=== PATIENT | male | born 1960 | race Two or more races ===

== ENCOUNTER 2016-11-23 19:26 | Emergency (ER) | payer MEDICARE ==
[~2016-11-23] VITALS: Ht 180.3 cm; Wt 72.6 kg
--- NOTE | 2016-11-23 19:26 | NUR ---
PT BIBA#102 PT STATES HE WANTS TO KILLHIMSELF BY JUMPING OFF A PARKING GARAGE AND DENIES HI, PT STATES HE ALSO HAS PNEUMONIA.
--- NOTE | 2016-11-23 19:57 | NUR ---
ROLL CAPPER AT BEDSIDE FOR EVAL
[2016-11-23 20:10] LABS: BASOPHILS # (AUTO) 0.4 /CMM (0.0-0.2); BASOPHILS % (AUTO) 2.8 % (0.0-2.0); HEMATOCRIT 42 % (39-51); HEMOGLOBIN 13.9 g/dL (13.5-17.5); LYMPHOCYTES # (AUTO) 1.1 /CMM (0.8-4.8); MEAN CORPUSCULAR HEMOGLOBIN 27 PG (26.0-33.0); MEAN CORPUSCULAR HGB CONC 33 g/dl (31.0-36.0); MEAN CORPUSCULAR VOLUME 82 fL (80-96); MONOCYTES # (AUTO) 0.7 /CMM (0.1-1.30); MONOCYTES % (AUTO) 5.5 % (2.0-12.0); NEUTROPHILS # (AUTO) 10.6 /CMM (1.8-8.9); NEUTROPHILS % (AUTO) 82.7 % (43.0-81.0); PLATELET COUNT (AUTO) 409 /CMM (150-450); RDW COEFFICIENT OF VARIATION 13.3 (11.5-15.0); RED BLOOD CELL COUNT(AUTO) 5.15 MIL/uL (4.5-6.0); WHITE BLOOD COUNT (AUTO) 12.8 K/uL (4.3-11.0)
[2016-11-23 20:12] LABS: CARBON DIOXIDE 25 mmol/L (21-32); CHLORIDE 104 mmol/L (98-107); GLUCOSE 130 mg/dL (74-106); POTASSIUM 4.2 mmol/L (3.5-5.1); SODIUM SERUM 140 mmol/L (136-145); UREA NITROGEN, BLOOD 24 mg/dL (7-18)
[2016-11-23 20:18] LABS: ACETAMINOPHEN < 2 ug/ml (10-30); ALANINE AMINOTRANSFERASE 26 U/L (12-78); ALCOHOL, BLOOD < 3 mg/dL (0-0); ALKALINE PHOSPHATASE 86 U/L (46-116); ASPARTATE AMINOTRANSFERASE 19 U/L (15-37); BILIRUBIN,DIRECT 0.1 mg/dL (0.0-0.2); BILIRUBIN,TOTAL 0.3 mg/dL (0.2-1.0); SALICYLATE 1.4 mg/dL (2.8-20.0); TOTAL PROTEIN, SERUM 7.8 g/dL (6.4-8.2)
--- NOTE | 2016-11-23 20:56 | NUR ---
URINE SAMPLE COLLECTED SENT TO LAB
[2016-11-23 22:34] LABS: APPEARANCE,URINE CLEAR (CLEAR); BILIRUBIN,URINE NEGATIVE (NEGATIVE); BLOOD, URINE NEGATIVE Ery/uL (NEGATIVE); COLOR,URINE YELLOW (YELLOW); KETONES,URINE TRACE (NEGATIVE); LEUKOCYTE ESTERASE ,URINE NEGATIVE (NEGATIVE); NITRITE, URINE NEGATIVE (NEGATIVE); PROTEIN,URINE NEGATIVE (NEGATIVE); UGLUCOSE NEGATIVE (NEGATIVE); UROBILINOGEN,URINE 0.2 EU/dL (0.2)
[2016-11-23 22:42] LABS: BACTERIA,URINE Few /HPF (None Seen); RBC,URINE 0-2 /HPF (0-2); SQUAMOUS EPITHELIAL CELL,UR Rare /HPF (None Seen); WBC,URINE 0-2 /HPF (0-3)
--- NOTE | 2016-11-23 23:31 | NUR ---
WAITING FOR ART, CRISIS NURSE EVAL.
--- NOTE | 2016-11-23 23:38 | NUR ---
ART AT BEDSIDE FOR EVAL
[2016-11-24 00:40] VITALS: BP 148/88
--- NOTE | 2016-11-24 00:40 | NUR ---
Patient discharged to home in stable condition. Written and verbal after care instructions given. Patient verbalizes understanding of instruction.Patient given written and verbal discharge instructions. Patient verbalizes understanding of instructions. Patient is ambulatory with steady gait. Refuses offer of jail placement. Patient given list of available shelters in surrounding area.
== END 2016-11-24 00:41 | disposition home or self-care (01) ==
LOC: ER 19:27
DX: F20.9 Schizophrenia, unspecified (principal); R05 Cough; F32.9 Major depressive disorder, single episode, unspecified
CPT/HCPCS: 36415; 71010-TC; 80048-TC; 80076-TC; 80305; 81000-TC; 85025-TC; A4606; G0480; J7030; Z7610

== ENCOUNTER 2016-12-08 20:11 | Emergency (ER) | payer MEDICARE, MEDICAID ==
[~2016-12-08] VITALS: Ht 177.8 cm; Wt 68.0 kg
--- NOTE | 2016-12-08 20:27 | NUR ---
BB SELF; MEDICATION REFILL XANAX 2MG BID, PT AOX3 RR EVEN AND UNLABORED. NO SOB NOTED. NAD NOTED. NO NVD AT THIS TIME. DR. MCKEON AT BEDSIDE FOR EVAL.
[2016-12-08] MEDS ORDERED: OLANZAPINE 10 MG VIAL IM ONE (20:30)
[2016-12-08] MEDS ORDERED: OLANZAPINE 5 MG TABLET ONE (20:30)
[2016-12-08] MEDS ORDERED: ALPRAZOLAM 0.5 MG TABLET PO ONE (20:30)
[2016-12-08] MEDS ORDERED: ALPRAZOLAM 0.5 MG TABLET ONE (20:30)
--- NOTE | 2016-12-08 20:31 | NUR ---
VERBAL ORDERS PER DR. MCKEON TO GIVE PT ZYPREXA 10MG PO INSTEAD OF ZYPREXA 10MG IM. PT MEDICATED.
[2016-12-08 21:24] LABS: BASOPHILS % (AUTO) 0.5 % (0.0-2.0); EOSINOPHILS # (AUTO) 0.4 /CMM (0.0-0.7); EOSINOPHILS % (AUTO) 6.4 % (0.0-6.0); HEMATOCRIT 36 % (39-51); HEMOGLOBIN 11.9 g/dL (13.5-17.5); LYMPHOCYTES % (AUTO) 30.7 % (20.0-44.0); MEAN CORPUSCULAR HEMOGLOBIN 28 PG (26.0-33.0); MEAN CORPUSCULAR HGB CONC 33 g/dl (31.0-36.0); MEAN CORPUSCULAR VOLUME 83 fL (80-96); MONOCYTES # (AUTO) 0.6 /CMM (0.1-1.30); MONOCYTES % (AUTO) 9.7 % (2.0-12.0); NEUTROPHILS # (AUTO) 3.6 /CMM (1.8-8.9); NEUTROPHILS % (AUTO) 52.7 % (43.0-81.0); PLATELET COUNT (AUTO) 330 /CMM (150-450); RDW COEFFICIENT OF VARIATION 13.4 (11.5-15.0); RED BLOOD CELL COUNT(AUTO) 4.33 MIL/uL (4.5-6.0); WHITE BLOOD COUNT (AUTO) 6.6 K/uL (4.3-11.0)
[2016-12-08] MEDS ORDERED: OLANZAPINE 5 MG TABLET PO ONE (21:30)
[2016-12-08 21:33] LABS: CALCIUM, SERUM 8.4 mg/dL (8.5-10.1); CARBON DIOXIDE 27 mmol/L (21-32); CHLORIDE 108 mmol/L (98-107); CREATININE 0.8 mg/dL (0.6-1.3); GLUCOSE 83 mg/dL (74-106); POTASSIUM 4.1 mmol/L (3.5-5.1); SODIUM SERUM 137 mmol/L (136-145); UREA NITROGEN, BLOOD 11 mg/dL (7-18)
[2016-12-08 21:35] LABS: ALCOHOL, BLOOD < 3 mg/dL (0-0)
[2016-12-08 21:41] LABS: TROPONIN I < 0.017 ng/mL (0.00-0.056)
--- NOTE | 2016-12-08 22:09 | NUR ---
ART CALLED FOR EVAL.
--- NOTE | 2016-12-08 22:09 | NUR ---
URINE COLLECTED. CALLED LAB FOR FREEZING ROOM WORKER
--- NOTE | 2016-12-08 23:10 | NUR ---
ART AT BEDSIDE FOR EVAL.
--- NOTE | 2016-12-09 00:17 | NUR ---
SPOKE TO HUMBERTO FROM [facility] [phone] FOR GRADY. ADMITTING MD DR. LARIOS
--- NOTE | 2016-12-09 00:34 | NUR ---
CALLED LUAN LOZADA 20 MINUTES.
--- NOTE | 2016-12-09 01:00 | NUR ---
REPORT GIVEN TO LUAN EMT FOR GRADY. PT AWARE OF TRANSFER TO [facility]. VSS PT WITH ALL PERSONAL BELONGINGS. PER SHAWANDA TOOK OVER CARE. PT TO BE TRANSFERRED VIA GURNEY.
[2016-12-09 01:06] VITALS: BP 132/69
== END 2016-12-09 01:06 | disposition home or self-care (01) ==
LOC: ER 20:13
DX: R45.851 Suicidal ideations (principal); F32.9 Major depressive disorder, single episode, unspecified; F20.9 Schizophrenia, unspecified
CPT/HCPCS: 36415; 80048; 80305; 84484; 85025; 99284; A4606; G0480; Z7610

== ENCOUNTER 2017-03-10 00:42 | Inpatient (IN) | payer MEDICARE, MEDICAID ==
[~2017-03-10] VITALS: Ht 179.1 cm; Wt 69.9 kg
--- NOTE | 2017-03-10 03:30 | NUR ---
GPS RN NOTES: ADMITTED A 56-YEAR OLD MALE FROM [facility], ACCOMPANIED BY 2 EMT'S VIA GURNEY TRANSPORTED BY AMBULANCE, PATIENT ADMITTED ON 5150 HOLD FOR DTS. PER HOLD PATIENT REPORTS HE IS HEARING VOICES AND WANTS TO JUMP OFF THE GRAETTINGER PIER. PATIENT REPORTS THAT HE IS OUT OF MEDICATIONS AND DOES NOT FEEL SAFE. PT REPORTS INCREASED SI OVER THE PAST 2 DAYS. UPON FACE TO FACE EVALUATION PATIENT IS ALERT, ORIENTED X 3, ANXIOUS WITH CONFUSION, HYPERVERBAL, MED SEEKER, PATIENT DID NOT VERBALIZE SI/HI, DENIES VISUAL/AUDITORY HALLUCINATIONS AT THIS TIME. PATIENT RIGHTS WAS EXPLAINED TO HIM AND PATIENT RIGHT BOOKLET WAS GIVEN TO HIM. PATIENT WAS ORIENTED IN THE UNIT AND UNIT POLICIES. CONTRABAND, SKIN ASSESSMENT DONE. NO FAMILY TO NOTIFY OF HIS ADMISSION PER PATIENT. WILL CONTINUE TO MONITOR [id number] FOR SAFETY AND BEHAVIOR. DR. BYRNE MADE AWARE OF ADMISSION. WILL ENDORSE TO THE INCOMING NURSE FOR CONTINUITY OF CARE. Addendum: 03/10/17 at 0530 by TRENT STEPHENSON RN DR. GOMEZ NOTIFIED OF THE ADMISSION ORDERS OBTAINED.
[2017-03-10] MEDS ORDERED: MAG HYDROX/AL HYDROX/SIMETH 30 ML UDC PO PRN (04:00)
[2017-03-10] MEDS ORDERED: MAGNESIUM HYDROXIDE 30 ML UDC PO PRN (04:00)
[2017-03-10] MEDS ORDERED: ALPR2TAB2 PO (04:04)
[2017-03-10] MEDS ORDERED: TRIH2TAB4 PO (04:04)
[2017-03-10] MEDS ORDERED: QUET100T PO (04:04)
[2017-03-10 05:08] VITALS: BP 139/90
--- NOTE | 2017-03-10 09:00 | NUR ---
GPS/RN PT REFUSED FULL BODY ASSESSMENT. STATES : " I ONLY HAVE SHOULDER ABRASION"
--- NOTE | 2017-03-10 10:14 | NUR ---
WOUND CARE CONSULT: PT AMBULATORY AND CONTINENT WITH RT SHOULDER ABRASION, PRESENT ON ADMISSION. RECOMMENDATIONS MADE FOR WOUND CARE. DISCUSSED WITH NURSING STAFF. WILL SEE PRN. PEREZ IN AGREEMENT WITH PLAN OF CARE. Addendum: 03/10/17 at 1015 by LASHELL ORTIZ WNDNU Amended: Links added.
[2017-03-10] MEDS ORDERED: clonazePAM 0.5 MG TABLET PO PRN (10:30)
[2017-03-10] MEDS: QUETIAPINE FUMARATE 100 MG TABLET PO SCH ×3 (11:00→16:25)
--- NOTE | 2017-03-10 11:34 | NUR ---
GPS/RN PT REFUSED TO TAKE SEROQUEL, STATES : " I NEED ARTANE..."
--- NOTE | 2017-03-10 12:30 | NUR ---
GPS/RN PT REFUSED ATIVAN OFFERED. STATES: " I NEED 2MG TABLET..'
[2017-03-10] MEDS: BACITRACIN/POLYMYXIN B 15 GM TUBE TP SCH (13:09)
--- NOTE | 2017-03-10 13:55 | NUR ---
GPS/RN CALLED FOR THE ORDERS, PT REQUESTED ARTANE PO TO BE GIVEN WITH SEROQUEL. ORDERS RECEIVED AND CARRIED OUT.
--- NOTE | 2017-03-10 14:01 | NUR ---
Initial Discharge Note: Patient is homeless. Patient states that he "might consider" a transitional living. Patient states that he absolutely does not want a board and care, assisted living facility or a SNF. Patient states that, after discharge, he wants to go to [place]. Patient states that he does not have anyone for SW to call or contact. SW to follow up with treatment team and to facilitate a safe discharge for patient.
[2017-03-10 16:00] VITALS: BP 150/96
[2017-03-10] MEDS: TRIHEXYPHENIDYL HCL 5 MG TABLET PO SCH (16:25)
[2017-03-10] MEDS: LORAZEPAM 0.5 MG TABLET PO PRN ×2 (16:30→19:52)
[2017-03-10] MEDS: ACETAMINOPHEN 325 MG TABLET PO PRN ×2 (17:01→20:03)
[2017-03-10] MEDS: DIVALPROEX SODIUM 250 MG TABLET.DR PO SCH ×2 (21:00→21:52)
[2017-03-10] MEDS: TEMAZEPAM 7.5 MG CAPSULE PO PRN (21:53)
[2017-03-11 07:57] LABS: ALBUMIN 3.4 g/dL (3.4-5.0); BILIRUBIN,TOTAL 0.3 mg/dL (0.2-1.0); CALCIUM, SERUM 8.8 mg/dL (8.5-10.1); CREATININE 0.7 mg/dL (0.6-1.3); POTASSIUM 4.2 mmol/L (3.5-5.1)
[2017-03-11 08:00] VITALS: BP 128/93
[2017-03-11 08:32] LABS: CHOLESTEROL 139 mg/dL (<200); HDL CHOLESTEROL 56 mg/dL (40-60); LDL 70 mg/dL (0-99); TRIGLYCERIDES 82 mg/dL (30-150)
[2017-03-11] MEDS: QUETIAPINE FUMARATE 100 MG TABLET PO SCH ×3 (08:58→16:28)
[2017-03-11] MEDS: TRIHEXYPHENIDYL HCL 5 MG TABLET PO SCH ×3 (08:58→16:28)
[2017-03-11] MEDS: DIVALPROEX SODIUM 250 MG TABLET.DR PO SCH ×2 (08:59→21:30)
[2017-03-11] MEDS: BACITRACIN/POLYMYXIN B 15 GM TUBE TP SCH (10:42)
[2017-03-11] MEDS: LORAZEPAM 0.5 MG TABLET PO PRN ×2 (12:00→20:39)
--- NOTE | 2017-03-11 12:00 | NUR ---
GPS/RN ATIVAN 0.5 MG SCANNED AND GIVEN TO THE PATIENT PRIOR TO DR GOMEZ NEW ORDERS. Spime DID NOT SAVED MEDICATION "ADMINISTERED " BUT FORCED THE TRACTOR DRIVER TEAMSTER OF THE NOTE TO " DISCARD AND REFRESH" INSTEAD.
[2017-03-11 16:00] VITALS: BP 138/88
[2017-03-11] MEDS: TEMAZEPAM 7.5 MG CAPSULE PO PRN (21:31)
[2017-03-12 08:00] VITALS: BP 145/76
[2017-03-12] MEDS: DIVALPROEX SODIUM 250 MG TABLET.DR PO SCH (09:02)
[2017-03-12] MEDS: QUETIAPINE FUMARATE 100 MG TABLET PO SCH ×4 (09:02→21:27)
[2017-03-12] MEDS: TRIHEXYPHENIDYL HCL 5 MG TABLET PO SCH ×3 (09:02→17:41)
[2017-03-12] MEDS: BACITRACIN/POLYMYXIN B 15 GM TUBE TP SCH (09:03)
[2017-03-12] MEDS: LORAZEPAM 0.5 MG TABLET PO PRN ×3 (09:06→21:39)
[2017-03-12] MEDS ORDERED: DIVALPROEX SODIUM 250 MG TABLET.DR PO SCH (13:00)
[2017-03-12] MEDS: DIVALPROEX SODIUM 125 MG TABLET.DR PO SCH (13:24)
[2017-03-12 16:00] VITALS: BP 123/91
[2017-03-12 19:58] VITALS: BP 131/71
[2017-03-12] MEDS: DIVALPROEX SODIUM 125 MG CAP.SPRINK PO SCH (21:00)
[2017-03-12] MEDS: ACETAMINOPHEN 325 MG TABLET PO PRN (21:27)
--- NOTE | 2017-03-12 23:21 | NUR ---
GPS RN: PATIENT REQUESTED FOR BREATHING TREATMENT, PATIENT HAS HISTORY OF ASTHMA. PAGED DR. BYRNE, AND SHE GAVE ORDERS FOR ALBUTEROL NEB Q4HRS PRN FOR SOB. ORDERS NOTED AND CARRIED OUT. WILL CONTINUE TO MONITOR PATIENT.
[2017-03-12] MEDS ORDERED: ALBUTEROL FS 2.5 MG/0.5 ML VIAL.NEB ONE (23:32)
[2017-03-12] MEDS: ALBUTEROL FS 2.5 MG/0.5 ML VIAL.NEB NEB PRN (23:38)
[2017-03-13 08:00] VITALS: BP 129/75
[2017-03-13] MEDS: TRIHEXYPHENIDYL HCL 5 MG TABLET PO SCH ×3 (08:18→17:14)
[2017-03-13] MEDS: QUETIAPINE FUMARATE 100 MG TABLET PO SCH ×4 (08:19→21:00)
[2017-03-13] MEDS: DIVALPROEX SODIUM 125 MG CAP.SPRINK PO SCH ×2 (08:21→21:00)
[2017-03-13] MEDS: BACITRACIN/POLYMYXIN B 15 GM TUBE TP SCH (08:21)
[2017-03-13] MEDS: LORAZEPAM 0.5 MG TABLET PO PRN ×2 (08:34→18:14)
--- NOTE | 2017-03-13 08:34 | NUR ---
[id number]: GAVE ATIVAN 1 MG PO DUE TO SEVERE ANXIETY UPON PT REQUEST AND WILL CONTINUE TO MONITOR FOR EFFECTIVENESS OF MEDICATION
--- NOTE | 2017-03-13 11:38 | NUR ---
SUPRIYA conducted a substance abuse intervention with patient. Completed intervention is in patient's chart. Addendum: 03/14/17 at 1004 by ISABEL EPPS INCORRECT PATIENT. PLEASE DISREGARD!
[2017-03-13] MEDS: DIVALPROEX SODIUM 125 MG TABLET.DR PO SCH ×2 (12:10→12:17)
[2017-03-13 16:14] VITALS: BP 135/89
--- NOTE | 2017-03-13 18:14 | NUR ---
[id number]: GAVE ATIVAN 1 MG PO DUE TO SEVERE ANXIETY UPON PT REQUEST AND WILL CONTINUE TO MONITOR FOR EFFECTIVENESS OF MEDICATION
[2017-03-13 19:53] VITALS: BP 127/75
[2017-03-14] MEDS: LORAZEPAM 0.5 MG TABLET PO PRN ×3 (05:27→19:41)
[2017-03-14 08:00] VITALS: BP 106/67
[2017-03-14] MEDS: QUETIAPINE FUMARATE 100 MG TABLET PO SCH ×3 (08:17→16:45)
[2017-03-14] MEDS: DIVALPROEX SODIUM 125 MG CAP.SPRINK PO SCH (08:18)
[2017-03-14] MEDS: BACITRACIN/POLYMYXIN B 15 GM TUBE TP SCH (09:00)
[2017-03-14] MEDS: TRIHEXYPHENIDYL HCL 5 MG TABLET PO SCH ×3 (09:00→16:45)
--- NOTE | 2017-03-14 09:22 | NUR ---
RN-CO: MADE A FOLLOW OF MANSOOR TO PHARMACIST 2X .STILL NOT AVAILABLE.
--- NOTE | 2017-03-14 10:04 | NUR ---
RN-CO: CALLED PHARMACIST AGAIN TO DELIVER ARTANE.
--- NOTE | 2017-03-14 11:53 | NUR ---
Discharge Planning: SW spoke with patient regarding discharge plan. SW explained different option for patient. Patient agreed to temporary SNF placement. SW to secure placement for patient.
--- NOTE | 2017-03-14 11:54 | NUR ---
Discharge Planning: SUPRIYA faxed an inquiry to [facility], [address] [place] [address] / fax number [phone]
[2017-03-14] MEDS: DIVALPROEX SODIUM 125 MG TABLET.DR PO SCH (12:18)
--- NOTE | 2017-03-14 13:50 | NUR ---
RN-CO: ATIVAN 1 MG GIVEN FOR ANXIETY.
[2017-03-14 16:00] VITALS: BP 126/98
--- NOTE | 2017-03-14 16:49 | NUR ---
Discharge Planning: SUPRIYA heard back from , admissions from [facility], [address] [place] [address] / fax number [phone], who stated that he scanned patient's insurance and found that there are no SNF days left through medicare. Kelvin, mask designer from multiple facilities, also contacted SUPRIYA and informed her that he had been attempting to find placement for patient in other facilities, but patient is a "flight risk" and does not have SNF days left through medicare. SUPRIYA informed patient. Patient stated that he was planned on only staying at the facility for a "day or two." Patient stated that he just wants to "go to [place]."
[2017-03-14 20:10] VITALS: BP 138/84
[2017-03-14] MEDS: QUETIAPINE FUMARATE 25 MG TABLET PO SCH (21:56)
[2017-03-14] MEDS ORDERED: TRIHEXYPHENIDYL HCL 5 MG TABLET PO ONE (22:00)
[2017-03-15 08:00] VITALS: BP 120/79
[2017-03-15] MEDS: TRIHEXYPHENIDYL HCL 5 MG TABLET PO SCH ×3 (08:20→16:52)
[2017-03-15] MEDS: QUETIAPINE FUMARATE 25 MG TABLET PO SCH ×4 (08:20→21:01)
[2017-03-15] MEDS: BACITRACIN/POLYMYXIN B 15 GM TUBE TP SCH (08:21)
[2017-03-15] MEDS: LORAZEPAM 0.5 MG TABLET PO PRN ×3 (09:54→21:51)
--- NOTE | 2017-03-15 12:29 | NUR ---
Discharge Planning: SW spoke with patient regarding his discharge plan. Patient stated that he would like to - and is in agreement with - discharging from the hospital tomorrow morning. Patient stated that he does not want any alternative placement options. Patient stated that he would like a couple of bus tokens, which SW will secure for patient. SW will provide patient with various resources upon discharge.
[2017-03-15 16:43] VITALS: BP 125/88
[2017-03-15 20:36] VITALS: BP 146/80
[2017-03-16] MEDS: ALBUTEROL FS 2.5 MG/0.5 ML VIAL.NEB NEB PRN (00:59)
[2017-03-16] MEDS: LORAZEPAM 0.5 MG TABLET PO PRN ×2 (06:24→09:51)
[2017-03-16 08:00] VITALS: BP 117/74
[2017-03-16] MEDS: QUETIAPINE FUMARATE 25 MG TABLET PO SCH (09:25)
[2017-03-16] MEDS: TRIHEXYPHENIDYL HCL 5 MG TABLET PO SCH (09:25)
[2017-03-16] MEDS: BACITRACIN/POLYMYXIN B 15 GM TUBE TP SCH (09:26)
--- NOTE | 2017-03-16 09:33 | NUR ---
Discharge Planning: SW spoke with patient the morning of discharge. Patient once again refused mcc, SNF, board and care or any alternative options. Patient stated that he had a plan for discharge, but did not wish to disclose the plan with SW. Patient is vague about his discharge plan and does not wish to discuss with SW. SW will provide patient with mental health, medical and community resources and referrals. SW will encourage patient to utilize these resources. Patient signed the homeless waiver form, stating that he is refusing placement and mcc resources. The signed waiver is in patient's chart.
--- NOTE | 2017-03-16 09:38 | NUR ---
SW made three attempts for the substance abuse intervention. Patient was unwilling to sign and participate in answering questions. SW attempted to engage patient in discussion of community resources and referrals to address his substance use, but patient was unwilling to discuss. SW provided patient with a list of resources and left them at his bedside.
--- NOTE | 2017-03-16 09:51 | NUR ---
rn notes administered ativan 1 mg po prn for anxiety, paranoia, v/s taken bp -130/82, p-99, continued monitoring.
--- NOTE | 2017-03-16 10:28 | NUR ---
Discharge Note: Patient will be discharged today at 11:30am. Patient remains vague about his discharge plans. Patient is homeless and is refusing any alternative placement. SW attempted to discuss various options, but patient was unwilling to discuss. SW secured two bus tokens for patient, at his request. Upon discharge, patient is calm. Patient denies suicidal and homicidal ideation. Patient states that he is glad to be leaving the hospital. SW provided patient with an extensive list of resources. A copy of the resources given to patient is in the patients chart. The resources list includes medical, mental health and substance abuse resources. Patient was also provided with a list of winter shelters and picker packer locations. Patient did not wish for SW to make any follow-up appointments for him. Patient has no family to notify. This is a list of resources provided for patient [the complete list, along with winter shelters is in patients chart. The patient also has a copy of all resources]: Medical Resources [facility] [address] [facility] [address] [facility] [address] [place] [address] Mental Health Referrals [facility] [address] [place] [address] [facility] [address] [facility] [address], [place] [facility] [address] [facility] [address], [facility] [address] [facility] Substance Abuse Resources [place] [address] [place] [address] takes walk-ins before 5pm [facility] [address] [place] [address] [facility] [address] [place] [address] Walk-in intake screening: after 9am on weekdays [facility] [address] [place] [address]
--- NOTE | 2017-03-16 12:45 | NUR ---
DISCHARGE NOTES PATIENT DISCHARGE AT THIS TIME GOING ASSISTED. PATIENT A/O X3, MED COMPLIANT , V/S STABLE, NO C/O PAIN. MEDICALLY STABLE. PATIENT DENIED SI/HI/AVH AT THIS TIME OF DISCHARGE. MED RECONCILIATION AND DISCHARGE ORDER REVIEWED AND EXPLAINED TO PATIENT. PATIENT VERBALIZED UNDERSTANDING. BELONGING RETURNED BACK TO THE PATIENT, PATIENT WILL FOLLOW PRIMARY PAYROLL HUMAN RESOURCES ASSISTANT, AND PSYCHIATRIST. PICTURE TAKEN, PATIENT SIGN PAPERWORK. ESCORTED PATIENT TO THE LOBBY FOR SAFETY.
== END 2017-03-16 12:45 | disposition home or self-care (01) | DRG 885 ==
LOC: GPS 03:17
PROVIDERS: ADMIT Psychiatry & Neurology Psychosomatic Medicine; ATTEND Psychiatry & Neurology Psychosomatic Medicine
DX: F20.9 Schizophrenia, unspecified (principal); F29 Unspecified psychosis not due to a substance or known physiological condition; R45.851 Suicidal ideations; F19.90 Other psychoactive substance use, unspecified, uncomplicated; F41.9 Anxiety disorder, unspecified; Z79.899 Other long term (current) drug therapy
CPT/HCPCS: 36415; 80053-TC; 80061-TC

== ENCOUNTER 2017-05-09 04:36 | Emergency (ER) | payer MEDICARE, MEDICAID ==
[~2017-05-09] VITALS: Ht 175.3 cm; Wt 72.6 kg
[~2017-05-09 04:36] MED LIST: ALPR2TAB2 PO; QUET100T PO; TRIH2TAB4 PO
[2017-05-09 05:07] VITALS: BP 139/86
[2017-05-09] MEDS ORDERED: QUETIAPINE FUMARATE 100 MG TABLET PO STA (05:43)
[2017-05-09] MEDS ORDERED: ALPRAZOLAM 0.5 MG TABLET ONE (05:48)
[2017-05-09] MEDS ORDERED: QUETIAPINE FUMARATE 25 MG TABLET ONE (05:49)
[2017-05-09] MEDS ORDERED: ALPRAZOLAM 0.5 MG TABLET PO ONE (06:00)
== END 2017-05-09 06:11 | disposition home or self-care (01) ==
LOC: ER 04:36
DX: Z76.0 Encounter for issue of repeat prescription (principal); F41.9 Anxiety disorder, unspecified; F31.9 Bipolar disorder, unspecified
CPT/HCPCS: 99284; A4606; Z7610

== ENCOUNTER 2019-12-18 23:39 | Emergency (ER) | payer MEDICARE, MEDICAID ==
[~2019-12-18] VITALS: Ht 179.1 cm; Wt 74.8 kg
[2019-12-18 23:40] VITALS: BP 155/92
[2019-12-19] MEDS ORDERED: ALPRAZOLAM 0.5 MG TABLET ONE (00:23)
[2019-12-19] MEDS ORDERED: HYDROCODONE/APAP 5/325MG TABLET ONE (00:23)
[2019-12-19] MEDS ORDERED: HYDROCODONE/APAP 5/325MG TABLET PO ONE (00:30)
[2019-12-19] MEDS ORDERED: ALPRAZOLAM 0.5 MG TABLET PO ONE (00:30)
--- NOTE | 2019-12-19 00:32 | NUR ---
I SPOKE TO THE PT REGARDING MEDICATING HIM. PT AGREED TO BE MEDICATED. PT THEN ASKED IF THERE WAS A RX. I TOLD THE PT HE WOULD BE DISCHARGED WITH NO RX. PT STATED "FUCK YOU, THIS IS BOOKER." PT THEN STATED "I WILL REPORT YOU AND I WILL CALL 911 ONCE I AM OUTSIDE." PT THEN LEFT THE E.D. WITHOUT SIGNING PAPER WORK
== END 2019-12-19 00:36 | disposition home or self-care (01) ==
LOC: ER 23:39
DX: G89.29 Other chronic pain (principal); Z76.0 Encounter for issue of repeat prescription; F41.9 Anxiety disorder, unspecified; F31.9 Bipolar disorder, unspecified; Z79.899 Other long term (current) drug therapy

== ENCOUNTER 2019-12-19 01:05 | Emergency (ER) | payer MEDICAID, MEDICARE ==
--- NOTE | 2019-12-19 01:06 | NUR ---
UPON ARRIVAL OF EMS PT STARTED SPITTING ON THE FLOOR, CURSING. PT STATES "WHO THE FUCK GIVES YOU 0.5MG OF XANAX." GOT OUT OF [facility] AND WALKED OUT OF ER. PT WAS SEEN HERE EARLIER.
== END 2019-12-19 01:19 | disposition left against medical advice (07) ==
LOC: ER 01:05
DX: F41.9 Anxiety disorder, unspecified (principal); G89.29 Other chronic pain; F31.9 Bipolar disorder, unspecified; Z79.899 Other long term (current) drug therapy; Z76.0 Encounter for issue of repeat prescription

== ENCOUNTER 2020-03-05 01:36 | Emergency (ER) | payer MEDICAID, MEDICARE ==
[~2020-03-05] VITALS: Ht 180.3 cm; Wt 77.1 kg
--- NOTE | 2020-03-05 02:31 | NUR ---
PT AAOX4. AMBULATORY WITH STEADY GAIT. BIBSELF C/O "OUT OF PSYCH MEDS" MD AT BEDSIDE FOR EVAL. AWAITING ORDERS.
[2020-03-05] MEDS ORDERED: ONDANSETRON 4 MG TAB.RAPDIS ONE (02:42)
[2020-03-05] MEDS ORDERED: BENZTROPINE MESYLATE (1 MG) 1 MG TABLET ONE (02:44)
[2020-03-05] MEDS ORDERED: QUETIAPINE FUMARATE 25 MG TABLET ONE (02:45)
[2020-03-05] MEDS ORDERED: DIPHENOXYLATE HCL/ATROP SULF 1 UDTAB TABLET ONE (02:45)
[2020-03-05] MEDS ORDERED: LORAZEPAM 1 MG TABLET ONE (02:45)
[2020-03-05] MEDS: QUETIAPINE FUMARATE 100 MG TABLET PO SCH (03:04)
[2020-03-05] MEDS: ONDANSETRON 4 MG TAB.RAPDIS SL ONE (03:04)
[2020-03-05] MEDS: BENZTROPINE MESYLATE (1 MG) 1 MG TABLET PO ONE (03:04)
[2020-03-05] MEDS: LORAZEPAM 1 MG TABLET PO ONE (03:04)
[2020-03-05] MEDS: DIPHENOXYLATE HCL/ATROP SULF 1 UDTAB TABLET PO ONE (03:04)
[2020-03-05 03:07] VITALS: BP 118/86
== END 2020-03-05 03:07 | disposition home or self-care (01) ==
LOC: ER 01:36
DX: R19.7 Diarrhea, unspecified (principal); Z76.0 Encounter for issue of repeat prescription; F41.9 Anxiety disorder, unspecified; J45.909 Unspecified asthma, uncomplicated; F31.9 Bipolar disorder, unspecified; Z59.0 Homelessness; Z79.899 Other long term (current) drug therapy
CPT/HCPCS: 99284; Q0162

== ENCOUNTER 2020-08-08 18:10 | Emergency (ER) | payer MEDICAID, MEDICARE ==
[~2020-08-08] VITALS: Ht 180.3 cm; Wt 65.8 kg
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
--- NOTE | 2020-08-08 18:37 | NUR ---
DR RAGLAND AT BEDSIDE FOR EVAL.
[2020-08-08] MEDS ORDERED: ACETAMINOPHEN ES 500 MG TABLET ONE (18:58)
[2020-08-08] MEDS ORDERED: ACETAMINOPHEN ES 500 MG TABLET PO ONE (19:00)
[2020-08-08 19:07] LABS: BASOPHILS # (AUTO) 0.1 /CMM (0.0-0.2); BASOPHILS % (AUTO) 0.6 % (0.0-2.0); EOSINOPHILS % (AUTO) 1.7 % (0.0-6.0); HEMATOCRIT 35 % (39-51); HEMOGLOBIN 11.3 g/dL (13.5-17.5); LYMPHOCYTES # (AUTO) 1.3 /CMM (0.8-4.8); LYMPHOCYTES % (AUTO) 14.3 % (20.0-44.0); MEAN CORPUSCULAR HGB CONC 32 g/dl (31.0-36.0); MEAN CORPUSCULAR VOLUME 85 fL (80-96); MONOCYTES # (AUTO) 1.1 /CMM (0.1-1.30); MONOCYTES % (AUTO) 11.4 % (2.0-12.0); NEUTROPHILS # (AUTO) 6.7 /CMM (1.8-8.9); PLATELET COUNT (AUTO) 306 /CMM (150-450); RED BLOOD CELL COUNT(AUTO) 4.16 MIL/uL (4.5-6.0); WHITE BLOOD COUNT (AUTO) 9.3 K/uL (4.3-11.0)
--- NOTE | 2020-08-08 19:15 | NUR ---
COVID SWAB DONE AND SENT TO THE LAB
[2020-08-08 19:48] LABS: CALCIUM, SERUM 8.2 mg/dL (8.5-10.1); CARBON DIOXIDE 24 mmol/L (21-32); CHLORIDE 105 mmol/L (98-107); GLUCOSE 93 mg/dL (74-106); POTASSIUM 3.8 mmol/L (3.5-5.1); SODIUM SERUM 139 mmol/L (136-145); UREA NITROGEN, BLOOD 30 mg/dL (7-18)
[2020-08-08 19:56] LABS: ALANINE AMINOTRANSFERASE 27 U/L (12-78); ALCOHOL, BLOOD < 3 mg/dL (0-0); ALKALINE PHOSPHATASE 56 U/L (46-116); ASPARTATE AMINOTRANSFERASE 38 U/L (15-37); BILIRUBIN,DIRECT 0.1 mg/dL (0.0-0.2); BILIRUBIN,TOTAL 0.4 mg/dL (0.2-1.0); TOTAL PROTEIN, SERUM 6.5 g/dL (6.4-8.2)
[2020-08-08 19:56] LABS: BILIRUBIN,URINE NEGATIVE (NEGATIVE); COLOR,URINE YELLOW (YELLOW); LEUKOCYTE ESTERASE ,URINE NEGATIVE (NEGATIVE); NITRITE, URINE NEGATIVE (NEGATIVE); PH,URINE 5.5 (5.0-8.0); PROTEIN,URINE TRACE mg/dl (NEGATIVE); UGLUCOSE NEGATIVE (NEGATIVE); UROBILINOGEN,URINE 0.2 EU/dL (0.2)
[2020-08-08 19:57] LABS: ACETAMINOPHEN < 2 ug/ml (10-30)
[2020-08-08 20:07] LABS: BACTERIA,URINE RARE /HPF (None Seen); RBC,URINE 0-2 /HPF (0-2); SQUAMOUS EPITHELIAL CELL,UR 0-2 /HPF (None Seen); WBC,URINE 0-2 /HPF (0-3)
[2020-08-08 20:08] LABS: HYALINE CASTS, URINE Few /LPF (None Seen); MUCUS,URINE Few /LPF (None Seen)
--- NOTE | 2020-08-08 20:37 | NUR ---
FACESHEET AND CLINICALS FAXED TO [facility].
[2020-08-09] MEDS ORDERED: LORAZEPAM 1 MG TABLET ONE (02:56)
[2020-08-09] MEDS ORDERED: LORAZEPAM 1 MG TABLET PO ONE (03:00)
[2020-08-09] MEDS ORDERED: LORA-259 PO (05:53)
--- NOTE | 2020-08-09 05:55 | NUR ---
SEEN BY [facility] CRISIS TEAM; CLEARED FOR DISCHARGE, DR. LUNA AWARE
--- NOTE | 2020-08-09 06:15 | NUR ---
Patient discharged to home in stable condition. Written and verbal after care instructions given. Patient verbalizes understanding of instruction.
[2020-08-09 06:16] VITALS: BP 133/76
== END 2020-08-09 06:16 | disposition home or self-care (01) ==
LOC: ER 18:16
DX: R45.851 Suicidal ideations (principal); L55.1 Sunburn of second degree; F20.9 Schizophrenia, unspecified; F31.9 Bipolar disorder, unspecified; J45.909 Unspecified asthma, uncomplicated; Z88.8 Allergy status to other drugs, medicaments and biological substances; Z59.0 Homelessness; Z82.49 Family history of ischemic heart disease and other diseases of the circulatory system; Z79.899 Other long term (current) drug therapy; Z20.822 Contact with and (suspected) exposure to COVID-19
CPT/HCPCS: 36415; 80048; 80076; 80143; 80307; 80320; 81001; 85025; 87426; 99285; C9803; G0480

== ENCOUNTER 2021-02-18 01:10 | Emergency (ER) | payer MEDICAID, MEDICARE, OTHER ==
[~2021-02-18] VITALS: Ht 180.3 cm; Wt 72.6 kg
[~2021-02-18 01:10] MED LIST changes: +LORA-259 PO
[2021-02-18 01:20] VITALS: BP 134/78
[2021-02-18] MEDS ORDERED: ACETAMINOPHEN W/ CODEINE#3 1 EA TABLET PO ONE (02:00)
[2021-02-18] MEDS ORDERED: IPRATROPIUM NEB FS 0.5 MG/2.5 ML AMPUL.NEB NEB ONE (02:00)
[2021-02-18] MEDS ORDERED: ALBUTEROL FS 2.5 MG/3 ML VIAL.NEB NEB ONE (02:00)
[2021-02-18] MEDS ORDERED: predniSONE 20 MG TABLET PO ONE (02:00)
[2021-02-18] MEDS ORDERED: ACETAMINOPHEN W/ CODEINE#3 1 EA TABLET ONE (02:05)
[2021-02-18] MEDS ORDERED: BENZ-13 PO (02:17)
--- NOTE | 2021-02-18 02:25 | NUR ---
Patient discharged to home in stable condition. Written and verbal after care instructions given. Patient verbalizes understanding of instruction.
== END 2021-02-18 02:25 ==
LOC: ER 01:13
DX: R05.9 Cough, unspecified (principal); J45.909 Unspecified asthma, uncomplicated; F31.9 Bipolar disorder, unspecified; F41.9 Anxiety disorder, unspecified; Z59.00 Homelessness unspecified; Z79.899 Other long term (current) drug therapy

== ENCOUNTER 2023-09-03 17:45 | Emergency (ER) | payer MEDICAID ==
[~2023-09-03] VITALS: Ht 180.3 cm; Wt 65.8 kg
[~2023-09-03 17:45] MED LIST changes: +BENZ-13 PO
[2023-09-03 17:53] VITALS: BP 144/93; TEMP 98; O2SAT 98
[2023-09-03 18:28] LABS: APPEARANCE,URINE CLEAR (CLEAR); BILIRUBIN,URINE NEGATIVE (NEGATIVE); BLOOD, URINE NEGATIVE Ery/uL (NEGATIVE); COLOR,URINE YELLOW (YELLOW); KETONES,URINE NEGATIVE (NEGATIVE); LEUKOCYTE ESTERASE ,URINE NEGATIVE (NEGATIVE); NITRITE, URINE NEGATIVE (NEGATIVE); PH,URINE 6.5 (5.0-8.0); PROTEIN,URINE NEGATIVE (NEGATIVE); UGLUCOSE NEGATIVE (NEGATIVE); UROBILINOGEN,URINE 0.2 EU/dL (0.2)
[2023-09-03 18:32] LABS: AMPHETAMINE, URINE NEGATIVE (NEGATIVE); BARBITURATE, URINE NEGATIVE (NEGATIVE); BENZODIAZEPINE, URINE NEGATIVE (NEGATIVE); CANNABINOID, URINE POSITIVE (NEGATIVE); COCCAINE, URINE NEGATIVE (NEGATIVE); OPIATE, URINE NEGATIVE (NEGATIVE); PHENCYCLIDINE SCREEN,URINE NEGATIVE (NEGATIVE)
[2023-09-03 18:51] LABS: BASOPHILS # (AUTO) 0.1 K/uL (0.0-0.2); BASOPHILS % (AUTO) 1.1 % (0.0-2.0); EOSINOPHILS # (AUTO) 0.5 K/uL (0.0-0.7); EOSINOPHILS % (AUTO) 7.4 % (0.0-6.0); HEMATOCRIT 37 % (39-51); HEMOGLOBIN 12.2 g/dL (13.5-17.5); LYMPHOCYTES # (AUTO) 1.6 K/uL (0.8-4.8); LYMPHOCYTES % (AUTO) 25.7 % (20.0-44.0); MEAN CORPUSCULAR HEMOGLOBIN 27 PG (26.0-33.0); MEAN CORPUSCULAR HGB CONC 33 g/dl (31.0-36.0); MEAN CORPUSCULAR VOLUME 84 fL (80-96); MONOCYTES # (AUTO) 0.7 K/uL (0.1-1.30); MONOCYTES % (AUTO) 11.7 % (2.0-12.0); NEUTROPHILS # (AUTO) 3.4 K/uL (1.8-8.9); NEUTROPHILS % (AUTO) 54.1 % (43.0-81.0); PLATELET COUNT (AUTO) 375 K/uL (150-450); RED BLOOD CELL COUNT(AUTO) 4.45 MIL/uL (4.5-6.0); RED CELL DISTRIBUTION WIDTH 15.1 % (11.5-15.0); WHITE BLOOD COUNT (AUTO) 6.4 K/uL (4.3-11.0)
[2023-09-03 19:00] LABS: CALCIUM, SERUM 9.2 mg/dL (8.5-10.1); CARBON DIOXIDE 22 mmol/L (21-32); CHLORIDE 104 mmol/L (98-107); CREATININE 0.9 mg/dL (0.6-1.3); GLUCOSE 119 mg/dL (74-106); POTASSIUM 3.8 mmol/L (3.5-5.1); SODIUM SERUM 138 mmol/L (136-145); UREA NITROGEN, BLOOD 22 mg/dL (7-18)
[2023-09-03 19:06] LABS: ALANINE AMINOTRANSFERASE 36 U/L (12-78); ALBUMIN 3.1 g/dL (3.4-5.0); ALCOHOL, BLOOD < 3 mg/dL (0-10); ALKALINE PHOSPHATASE 90 U/L (46-116); ASPARTATE AMINOTRANSFERASE 19 U/L (15-37); BILIRUBIN,DIRECT 0.1 mg/dL (0.0-0.2); BILIRUBIN,TOTAL 0.3 mg/dL (0.2-1.0); TOTAL PROTEIN, SERUM 7.1 g/dL (6.4-8.2)
[2023-09-03 19:07] LABS: SALICYLATE 2.5 mg/dL (2.8-20.0)
[2023-09-03 19:08] LABS: ACETAMINOPHEN 0 ug/ml (10-30)
[2023-09-03] MEDS ORDERED: ACETAMINOPHEN ES 500 MG TABLET ONE (20:01)
[2023-09-03] MEDS ORDERED: ONDANSETRON 4 MG TAB.RAPDIS ONE (20:01)
[2023-09-03] MEDS: ONDANSETRON 4 MG TAB.RAPDIS SL ONE (20:04)
[2023-09-03] MEDS: ACETAMINOPHEN ES 500 MG TABLET PO ONE (20:04)
[2023-09-05] MEDS ORDERED: BUDE10.2 INH (16:52)
[2023-09-05] MEDS ORDERED: QUET100T PO (16:52)
[2023-09-05] MEDS ORDERED: ALBU18HF2 INH (16:52)
[2023-09-05] MEDS ORDERED: TRIH5TAB3 PO (16:52)
[2023-09-05] MEDS ORDERED: ALPR2TAB2 PO (16:52)
== END 2023-09-04 00:40 | disposition left against medical advice (07) ==
LOC: ER 17:46
DX: R45.851 Suicidal ideations (principal); J45.909 Unspecified asthma, uncomplicated; F41.9 Anxiety disorder, unspecified; F31.9 Bipolar disorder, unspecified; F12.10 Cannabis abuse, uncomplicated; Z88.8 Allergy status to other drugs, medicaments and biological substances; Z59.00 Homelessness unspecified; Z20.822 Contact with and (suspected) exposure to COVID-19
CPT/HCPCS: 99283; 85025; 80048; 80076; 81003; 36415; 87426; 80143; 80320; 80307; Q0162; G0480

== ENCOUNTER 2023-09-05 16:12 | Emergency (ER) | payer MEDICAID ==
[~2023-09-05] VITALS: Ht 177.8 cm; Wt 72.6 kg
[2023-09-05] MEDS ORDERED: BUDE10.2 INH (16:52)
[2023-09-05] MEDS ORDERED: QUET100T PO (16:52)
[2023-09-05] MEDS ORDERED: ALPR2TAB2 PO (16:52)
[2023-09-05] MEDS ORDERED: ALBU18HF2 INH (16:52)
[2023-09-05] MEDS ORDERED: TRIH5TAB3 PO (16:52)
[2023-09-05 17:08] VITALS: BP 135/87; TEMP 98; O2SAT 97
== END 2023-09-05 17:09 | disposition home or self-care (01) ==
LOC: ER 16:14
DX: R07.89 Other chest pain (principal); J45.909 Unspecified asthma, uncomplicated; F31.9 Bipolar disorder, unspecified; Z79.899 Other long term (current) drug therapy; Z79.51 Long term (current) use of inhaled steroids; Z60.2 Problems related to living alone